=== PATIENT | female | born 1975 | race Caucasian/White ===

== ENCOUNTER 2024-11-26 11:37 | Emergency (ER) | payer MEDICAID ==
[~2024-11-26] VITALS: Ht 154.9 cm
--- OUTSIDE RECORDS SUMMARY | 2024-11-26 12:58 | XMS ---
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 PHONE: Unknown Tenisha has no Care Guidelines for this patient. E.Charly VISIT COUNT ([address] [facility]. 2 [facility]. 1 [facility] 1 [facility] TOTAL 14 NOTE: Visits indicate total known visits. ED/UCC VISIT TRACKING (12 MO.) 11/26/2024 11:37 [facility] [address] [facility] TYPE: Emergency COMPLAINT: - DRESSING CHANGE 11/24/2024 11:33 [facility] TYPE: Emergency DIAGNOSES: - Anemia, unspecified - Bronchopneumonia, unspecified organism - Sciatica, unspecified side - leg pain 09/07[facility]24 [facility] DIAGNOSES: - Diarrhea, unspecified - Hypokalemia - Nausea with vomiting, unspecified - Ulcerative colitis, unspecified with fistula - Diarrhea - Vomiting - Vomiting/Diarrhea 08/31/2024 14:39 [facility] TYPE: Emergency DIAGNOSES: - Hypokalemia - Lower abdominal pain, unspecified - Nausea with vomiting, unspecified - Noninfective gastroenteritis and colitis, unspecified - Urinary tract infection, site not specified - Nausea - Nausea, Vomiting - Vomiting 06/30/2024 12:42 Tommy KANG [place] TYPE: Emergency 06/25/2024 16:10 Tommy KANG [place] TYPE: Emergency COMPLAINT: - K51.90 DIAGNOSES: - Ulcerative colitis, unspecified, without complications - T- UTI 06/09/2024 09:56 Tommy KANG [place] TYPE: Emergency COMPLAINT: - N39.0 DIAGNOSES: - Ulcerative colitis, unspecified, without complications - Urinary tract infection, site not specified - T-OTHER 04/01/2024 16:17 Tommy KANG [place] TYPE: Emergency COMPLAINT: - K61.1 DIAGNOSES: - Abscess of the breast and nipple - Immunodeficiency, unspecified - Rectal abscess - Ulcerative colitis, unspecified, without complications - perianal abscess 02/26/2024 15:40 Tommy KANG [place] TYPE: Emergency COMPLAINT: - D64.9 DIAGNOSES: - Anemia, unspecified - Iron deficiency anemia, unspecified - Ulcerative colitis, unspecified, without complications - T/ UC Flare - ulcerative colitis flare since July. Blood in stool. +n/v for the last week 01/01/2024 23:59 Tommy KANG [place] TYPE: Emergency COMPLAINT: - R10.9 DIAGNOSES: - Ulcerative colitis, unspecified, without complications - Unspecified abdominal pain - M16 12/28/2023 11:48 Tommy KANG [place] TYPE: Emergency COMPLAINT: - K51.90 DIAGNOSES: - Ulcerative colitis, unspecified, without complications 12/25/2023 07:10 Tommy KANG [place] TYPE: Emergency COMPLAINT: - K51.90 DIAGNOSES: - Ulcerative colitis, unspecified, without complications - M8 12/11/2023 14:43 Tommy KANG [place] TYPE: Emergency COMPLAINT: - R19.7 DIAGNOSES: - Anemia, unspecified - Diarrhea, unspecified - Melena - Other fatigue 11/29/2023 19:09 Tommy KANG [place] TYPE: Emergency COMPLAINT: - K92.1 DIAGNOSES: - Dizziness and giddiness - Melena INPATIENT VISIT TRACKING (12 MO.) 09/22/2024 19:37 [facility] TYPE: Internal Medicine DIAGNOSES: 43768. Crohn's disease of large intestine with fistula 44368. Crohn's disease of large intestine with unspecified complications . Pneumonia due to other specified infectious organisms . Ulcerative colitis, unspecified with unspecified complications - Crohn's disease of large intestine with fistula - Crohn's disease of large intestine with unspecified complications - Pneumonia due to other specified infectious organisms - Ulcerative colitis, unspecified with unspecified complications 09/01/2024 00:02 [facility] TYPE: Medical Surgical DIAGNOSES: - Crohn's disease of large intestine with fistula - Gastro-esophageal reflux disease without esophagitis - Hematuria, unspecified - Hypokalemia - Lower abdominal pain, unspecified - Noninfective gastroenteritis and colitis, unspecified - Unspecified abdominal pain - Urinary tract infection, site not specified 07/20/2024 11:26 [facility] TYPE: Internal Medicine DIAGNOSES: 03344. Noninfective gastroenteritis and colitis, unspecified 12163. IBD vs UC flare 17396. Noninfective gastroenteritis and colitis, unspecified 06/30/2024 12:42 Tommy KANG [place] TYPE: Inpatient COMPLAINT: - N82.3 DIAGNOSES: - Fistula of vagina to large intestine - Ulcerative colitis, unspecified, without complications [email or web address]
[2024-11-26] MEDS ORDERED: CYCLOBENZAPRINE HCL 10 MG TAB PO ONE (13:15)
[2024-11-26] MEDS ORDERED: OXYCODONE HCL 5 MG TAB PO ONE (13:15)
[2024-11-26] MEDS ORDERED: ACETAMINOPHEN 500 MG TAB PO ONE (13:15)
[2024-11-26] MEDS ORDERED: GABAPENTIN 100 MG CAP PO ONE ×2 (14:30)
[2024-11-26] MEDS ORDERED: NEURONTIN300 MG PO (15:01)
[2024-11-26 15:20] VITALS: BP 129/67
== END 2024-11-26 15:20 | disposition home or self-care (01) ==
LOC: ED 11:37
DX: M54.41 Lumbago with sciatica, right side (principal); Z88.1 Allergy status to other antibiotic agents
CPT/HCPCS: 99283; A9270

== ENCOUNTER 2024-12-19 12:53 | Emergency (ER) | payer MEDICAID ==
[~2024-12-19] VITALS: Ht 154.9 cm; Wt 86.6 kg
[~2024-12-19 12:53] MED LIST: NEURONTIN300 MG PO
--- OUTSIDE RECORDS SUMMARY | 2024-12-19 12:55 | XMS ---
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 - 2 Visits in 30 Days - [facility] - 3 Facilities in 90 Days C[facility], Clinic[facility]Center: [facility] PHONE: Unknown Tenisha has no Care Guidelines for this patient. E.Charly VISIT COUNT (12 MO.) 8 Tyler H. 2 [facility] 2 [facility] TOTAL 14 NOTE: Visits indicate total known visits. ED/UCC VISIT TRACKING (12 MO.) 12/19/2024 12:54 SMAIR Ramirez [place] TYPE: Emergency COMPLAINT: - WEAKNESS 12/05/2024 10:56 [facility] Shanthi HU (Frank Marie) TYPE: Emergency DIAGNOSES: - Crohn's disease of large intestine with unspecified complications - Lumbago with sciatica, right side - Personal history of systemic steroid therapy - Pneumonia, unspecified organism - Abnormal Lab - back pain - Leg Pain 11/26/2024 11:37 SAMIR Ramirez [place] TYPE: Emergency COMPLAINT: - DRESSING CHANGE DIAGNOSES: - Allergy status to other antibiotic agents - Low back pain, unspecified - Lumbago with sciatica, right side 11/24/2024 11:33 [facility] Frank HU (Frank Marie) TYPE: Emergency DIAGNOSES: - Anemia, unspecified - Bronchopneumonia, unspecified organism - Sciatica, unspecified side - leg pain 09/07/2024 15:25 [facility] [place] TYPE: Emergency DIAGNOSES: - Diarrhea, unspecified - Hypokalemia - Nausea with vomiting, unspecified - Ulcerative colitis, unspecified with fistula - Diarrhea - Vomiting - Vomiting/Diarrhea 08/31/2024 14:39 [facility] [place] TYPE: Emergency DIAGNOSES: - Hypokalemia - Lower abdominal pain, unspecified - Nausea with vomiting, unspecified - Noninfective gastroenteritis and colitis, unspecified - Urinary tract infection, site not specified - Nausea - Nausea, Vomiting - Vomiting 06/30/2024 12:42 Tylerjewel KANG [place] TYPE: Emergency 06/25/2024 16:10 Tylerjewel KANG [place] TYPE: Emergency COMPLAINT: - K51.90 DIAGNOSES: - Ulcerative colitis, unspecified, without complications - T- UTI 06/09/2024 09:56 Tylerjewel [facility]el [place] TYPE: Emergency COMPLAINT: - N39.0 DIAGNOSES: - Ulcerative colitis, unspecified, without complications - Urinary tract infection, site not specified - T-OTHER 04/01/2024 16:17 Tyler Anthony KANG [place] TYPE: Emergency COMPLAINT: - K61.1 [...] Ulcerative colitis, unspecified, without complications - M8 INPATIENT VISIT TRACKING (12 MO.) 09/22/2024 19:37 [facility] TYPE: Internal Medicine DIAGNOSES: 47667. Crohn's disease of large intestine with fistula 25540. Crohn's disease of large intestine with unspecified complications 63908. Pneumonia due to other specified infectious organisms 40512. Ulcerative colitis, unspecified with unspecified complications - Crohn's disease of large intestine with fistula - Crohn's disease of large intestine with unspecified complications - Pneumonia due to other specified infectious organisms - Ulcerative colitis, unspecified with unspecified complications 09/01/2024 00:02 [facility] TYPE: Medical Surgical DIAGNOSES: - Crohn's disease of large intestine with fistula - Gastro-esophageal reflux disease without esophagitis - Hematuria, unspecified - Hypokalemia - Lower abdominal pain, unspecified - Noninfective gastroenteritis and colitis, unspecified - Unspecified abdominal pain - Urinary tract infection, site not specified 07/20/2024 11:26 [facility] TYPE: Internal Medicine DIAGNOSES: 95142. Noninfective gastroenteritis and colitis, unspecified 76441. IBD vs UC flare 69194. Noninfective gastroenteritis and colitis, unspecified 06/30/2024 12:42 Tommy BURLESON TYPE: Inpatient COMPLAINT: - N82.3 DIAGNOSES: - Fistula of vagina to large intestine - Ulcerative colitis, unspecified, without complications [id number]
[2024-12-19] MEDS ORDERED: SKYRIZI ON360 MG/2.4 SQ (13:14)
[2024-12-19] MEDS ORDERED: ZANAFLEX4 MG PO (13:14)
[2024-12-19] MEDS ORDERED: PREDNISONE20 MG PO (13:14)
[2024-12-19] MEDS ORDERED: ESOMEPRAZOLE MA20 MG PO (13:14)
[2024-12-19] MEDS ORDERED: OXYCODONE-ACET1 EAC1 PO (13:14)
[2024-12-19 13:47] LABS: BASOPHILS 0.2 % (0-2); EOSINOPHILS 0.3 % (0-6); HEMATOCRIT 22.3 % (35.0-50.0); HEMOGLOBIN 6.6 g/dL (12.0-18.0); LYMPHOCYTES 6.9 % (24-44); MCH 20.1 (27-36); MCHC 29.5 g/dl (30-36); MCV 68.4 fl (81-99); MONOCYTES 2.6 % (0-12); PLATELET COUNT 366 K/uL (140-440); RBC 3.26 M/ul (4.3-5.7)
[2024-12-19 13:58] LABS: ALBUMIN 2.8 g/dL (3.4-5.0); ALBUMIN/GLOBULIN RATIO 0.62 (1.1-2.4); ANION GAP 13.3 (7-21); BILIRUBIN, TOTAL 0.1 ng/dL (0.2-1.0); BUN/CREATININE RATIO 32.18 (6.0-28.6); CALCIUM 8.9 mg/dL (8.5-10.1); CREATININE, SERUM 0.87 mg/dL (0.55-1.02); POTASSIUM 4.3 mmol/L (3.5-5.1); PROTEIN, TOTAL 7.3 g/dL (6.4-8.2)
[2024-12-19 14:04] VITALS: BP 127/78
[2024-12-19 14:37] LABS: ABO B; ANTIBODY SCREEN GW72819; IS CROSSMATCH COMPATIBLE; RH NEGATIVE
[2024-12-19 14:57] LABS: ABO B; RH NEGATIVE
== END 2024-12-19 14:04 | disposition home or self-care (01) ==
LOC: ED 12:53
PROVIDERS: Emergency Medicine
DX: D64.9 Anemia, unspecified (principal); K51.911 Ulcerative colitis, unspecified with rectal bleeding; Z88.1 Allergy status to other antibiotic agents; Z79.52 Long term (current) use of systemic steroids; Z79.899 Other long term (current) drug therapy
CPT/HCPCS: 36415; 80053; 85025; 86850; 86900; 86901; 86922; 99284; P9016

== ENCOUNTER 2024-12-25 14:21 | Emergency (ER) | payer MEDICAID ==
[~2024-12-25] VITALS: Ht 154.9 cm; Wt 83.9 kg
[~2024-12-25 14:21] MED LIST changes: +ESOMEPRAZOLE MA20 MG PO; +OXYCODONE-ACET1 EAC1 PO; +PREDNISONE20 MG PO; +SKYRIZI ON360 MG/2.4 SQ; +ZANAFLEX4 MG PO
--- OUTSIDE RECORDS SUMMARY | 2024-12-25 14:28 | XMS ---
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 PHONE: Unknown Tenisha has no Care Guidelines for this patient. E.Francisca. VISIT COUNT (12 MO.) 7 Tommy Cruz 4 [facility] [address] [facility] 2 [facility]. TOTAL 15 NOTE: Visits indicate total known visits. ED/UCC VISIT TRACKING (12 MO.) 12/25/2024 14:21 SAMIR Ramirez [place] TYPE: Emergency COMPLAINT: - CATHETER ISSUE 12/24/2024 14:55 SAMIR Ramirez [place] TYPE: Emergency COMPLAINT: - CENTERAL LINE ISSUE 12/19/2024 12:54 SAMIR Ramirez [place] TYPE: Emergency COMPLAINT: - WEAKNESS DIAGNOSES: - Allergy status to other antibiotic agents - Anemia, unspecified - Dizziness and giddiness - longterm (current) use of systemic steroids - Other fpc (current) drug therapy - Ulcerative colitis, unspecified with rectal bleeding 12/05/2024 10:56 [facility] Frank HU (Frank Marie) TYPE: Emergency DIAGNOSES: - Crohn's disease of large intestine with unspecified complications - Lumbago with sciatica, right side - Personal history of systemic steroid therapy - Pneumonia, unspecified organism - Abnormal Lab - back pain - Leg Pain 11/26/2024 11:37 SAMIR Mcnulty TYPE: Emergency COMPLAINT: - DRESSING CHANGE DIAGNOSES: - Allergy status to other antibiotic agents - Low back pain, unspecified - Lumbago with sciatica, right side 11/24/2024 11:[facility] DIAGNOSES: - Anemia, unspecified - Bronchopneumonia, unspecified organism - Sciatica, unspecified side - leg pain 09/07/2024 15:25 [facility] Anthony YANEZ [place] TYPE: Emergency DIAGNOSES: - Diarrhea, unspecified - Hypokalemia - Nausea with vomiting, unspecified - Ulcerative colitis, unspecified with fistula - Diarrhea - Vomiting - Vomiting/Diarrhea 08/31/2024 14:39 [facility] [place] [facility] DIAGNOSES: - Hypokalemia - [...] site not specified - T-OTHER 04/01/2024 16:17 [facility] Anthony KANG [place] TYPE: Emergency COMPLAINT: - [...] abdominal pain - M16 12/28/2023 11:48 Tommy BURLESON TYPE: Emergency COMPLAINT: - K51.90 DIAGNOSES: - Ulcerative colitis, unspecified, without complications 12/25/2023 07:10 Tommy BURLESON TYPE: Emergency COMPLAINT: - K51.90 DIAGNOSES: - Ulcerative colitis, unspecified, without complications - M8 INPATIENT VISIT TRACKING (12 MO.) 09/22/2024 19:37 [facility] TYPE: Internal Medicine DIAGNOSES: 55905. Crohn's disease of large intestine with fistula 97713. Crohn's disease of large intestine with unspecified complications 47971. Pneumonia due to other specified infectious organisms 17287. Ulcerative colitis, unspecified with unspecified complications - Crohn's disease of large intestine with fistula - Crohn's disease of large intestine with unspecified complications - Pneumonia due to other specified infectious organisms - Ulcerative colitis, unspecified with unspecified complications 09/01/2024 00:02 [facility] TYPE: Medical Surgical DIAGNOSES: - Crohn's disease of large intestine with fistula - Gastro-esophageal reflux disease without esophagitis - Hematuria, unspecified - Hypokalemia - Lower abdominal pain, unspecified - Noninfective gastroenteritis and colitis, unspecified - Unspecified abdominal pain - Urinary tract infection, site not specified 07/20/2024 11:26 [facility] TYPE: Internal Medicine DIAGNOSES: 07505. Noninfective gastroenteritis and colitis, unspecified 36786. IBD vs UC flare 14893. Noninfective gastroenteritis and colitis, unspecified 06/30/2024 12:42 Tommy KANG [place] TYPE: Inpatient COMPLAINT: - N82.3 DIAGNOSES: - Fistula of vagina to large intestine - Ulcerative colitis, unspecified, without complications [id number]
[2024-12-25 16:09] VITALS: BP 119/76
== END 2024-12-25 16:09 | disposition home or self-care (01) ==
LOC: ED 14:21
DX: T82.9XXA Unspecified complication of cardiac and vascular prosthetic device, implant and graft, initial encounter (principal); K51.90 Ulcerative colitis, unspecified, without complications; Z88.1 Allergy status to other antibiotic agents; Z79.52 Long term (current) use of systemic steroids; Z79.891 Long term (current) use of opiate analgesic; Z79.899 Other long term (current) drug therapy
CPT/HCPCS: 96374; 99283-25

== ENCOUNTER 2025-05-08 09:27 | Emergency (ER) | payer MEDICAID ==
[~2025-05-08] VITALS: Ht 154.9 cm; Wt 95.4 kg
--- OUTSIDE RECORDS SUMMARY | 2025-05-08 09:33 | XMS ---
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 PHONE: Unknown Tenisha has no Care Guidelines for this patient. E.Charly VISIT COUNT (12 MO.) 6 [facility] Shanthi Bashir (Frank Marie) 5 [facility] 4 [place] [facility] 2 [facility] TOTAL 17 NOTE: Visits indicate total known visits. ED/UCC VISIT TRACKING (12 MO.) 05/08/2025 09:29 [facility] [address] Hammad Morton [place] TYPE: Emergency COMPLAINT: - ABNORMAL LAB 05/04/2025 12:01 [facility] Shanthi HU (Frank Marie) TYPE: Emergency DIAGNOSES: - Encounter for adjustment and management of vascular access device - Vascular Access Problem - wound check 04/23/2025 14:19 Tommy BURLESON TYPE: Emergency COMPLAINT: - D64.9 DIAGNOSES: - Anemia, unspecified - T/REFERRED BY PCP 01/20/2025 12:03 [facility] Frank HU (Frank Marie) TYPE: Emergency DIAGNOSES: - Hypoxemia - Other pulmonary embolism without acute cor pulmonale - Shortness of Breath - SOB 01/05/2025 02:38 [facility] Frank HU (Frank Marie) TYPE: Emergency DIAGNOSES: - Pain in right hip - neck / back / rt leg pain - Pain 01/04/2025 11:16 [facility] Frank HU (Frank Marie) TYPE: Emergency DIAGNOSES: - Lumbago with sciatica, right side - Other chronic pain - Hip Pain 12/25/2024 14:21 SAMIR Ramirez [place] TYPE: Emergency COMPLAINT: - CATHETER ISSUE DIAGNOSES: - Allergy status to other antibiotic agents - 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 - USP (current) use of systemic steroids - Other longterm (current) drug therapy - Ulcerative colitis, unspecified, without complications - Unspecified complication of cardiac and vascular prosthetic device, implant and graft, initial encounter 12/24/2024 14:55 SAMIR Ramirez [place] TYPE: Emergency COMPLAINT: - CENTERAL LINE ISSUE 12/19/2024 12:54 SAMIR Ramirez [place] TYPE: Emergency COMPLAINT: - WEAKNESS DIAGNOSES: - Allergy status to other antibiotic agents - Anemia, unspecified - Dizziness and giddiness - USP (current) use of systemic steroids - Other longterm (current) drug therapy - Ulcerative colitis, unspecified with rectal bleeding 12/05/2024 10[facility] DIAGNOSES: - Crohn's disease of large intestine with unspecified complications - Lumbago with sciatica, right side - Personal history of systemic steroid therapy - Pneumonia, unspecified organism - Abnormal Lab - back pain - Leg Pain 11/26/2024 11:37 [facility] [address] Hammad Morton [place] TYPE: Emergency COMPLAINT: - DRESSING CHANGE DIAGNOSES: - Allergy status to other antibiotic agents - Low back pain, unspecified - Lumbago with sciatica, right side 11/24/2024 11:33 [facility] Frank HU (Frank Marie) TYPE: Emergency DIAGNOSES: - Anemia, unspecified - Bronchopneumonia, unspecified organism - Sciatica, unspecified side - leg pain 09/07/2024 [facility]25 [facility] DIAGNOSES: - Diarrhea, unspecified - Hypokalemia - Nausea with vomiting, unspecified - Ulcerative colitis, unspecified with fistula - Diarrhea - Vomiting - Vomiting/Diarrhea 08/31/2024 14:39 [facility] TYPE: Emergency DIAGNOSES: - Hypokalemia - [...] tract infection, site not specified - T-OTHER INPATIENT VISIT TRACKING (12 MO.) 01/29/2025 16:13 [facility] Frank HU (Frank Marie) TYPE: Medical Surgical DIAGNOSES: - Candidal sepsis - Crohn's disease of large intestine with fistula - Hypoxemia - Other pulmonary embolism without acute cor pulmonale - Other specified interstitial pulmonary diseases 01/20/2025 12:03 [facility] Frank HU (Frank Marie) TYPE: Medical Surgical DIAGNOSES: - Acute respiratory failure with hypoxia - Anemia, unspecified - Bloodstream infection due to central venous catheter, initial encounter - Candidal sepsis - Crohn's disease of large intestine with fistula - Encounter for palliative care - Hypoxemia - Other malaise - Other pulmonary embolism without acute cor pulmonale - Other specified counseling - Sepsis, unspecified organism 09/22/2024 19:37 [facility] TYPE: Internal Medicine DIAGNOSES: 99542. Crohn's disease of large intestine with fistula 71695. Crohn's disease of large intestine with unspecified complications 22189. Pneumonia due to other specified infectious organisms 50838. Ulcerative colitis, unspecified with unspecified complications - Crohn's disease of large intestine with fistula - Crohn's disease of large intestine with unspecified complications - Pneumonia due to other specified infectious organisms - Ulcerative colitis, unspecified with unspecified complications 09/01/2024 00:02 [facility] TYPE: Medical Surgical DIAGNOSES: - Crohn's disease of large intestine with fistula - Gastro-esophageal reflux disease without esophagitis - Hematuria, unspecified - Hypokalemia - Lower abdominal pain, unspecified - Noninfective gastroenteritis and colitis, unspecified - Unspecified abdominal pain - Urinary tract infection, site not specified 07/20/2024 11:26 [facility] TYPE: Internal Medicine DIAGNOSES: 36792. Noninfective gastroenteritis and colitis, unspecified 22131. IBD vs UC flare 89490. Noninfective gastroenteritis and colitis, unspecified 06/30/2024 12:42 Tommy KANG [place] TYPE: Inpatient COMPLAINT: - N82.3 DIAGNOSES: - Fistula of vagina to large intestine - Ulcerative colitis, unspecified, without complications [email or web address]
[2025-05-08] MEDS ORDERED: [UNRECOGNIZED DRUG - OTHER] PO ONE (10:30)
[2025-05-08] MEDS ORDERED: POTASSIUM PHOSPHATE 20 MMOL in DEXTROSE 5% 500 ML IV ONE (10:30)
[2025-05-08] MEDS ORDERED: CALCIUM CARBONATE PO ONE (10:30)
[2025-05-08 17:50] LABS: ALBUMIN 3.1 g/dL (3.4-5.0); ALBUMIN/GLOBULIN RATIO 0.76 (1.1-2.4); ANION GAP 12.1 (7-21); BILIRUBIN, TOTAL 0.2 mg/dL (0.2-1.0); BUN/CREATININE RATIO 17.97 (6.0-28.6); CALCIUM 8.5 mg/dL (8.5-10.1); CREATININE, SERUM 0.89 mg/dL (0.55-1.02); POTASSIUM 4.1 mmol/L (3.5-5.1); PROTEIN, TOTAL 7.2 g/dL (6.4-8.2)
[2025-05-08 19:11] VITALS: BP 145/100
== END 2025-05-08 19:11 | disposition home or self-care (01) ==
LOC: ED 09:27
PROVIDERS: Emergency Medicine
DX: E83.39 Other disorders of phosphorus metabolism (principal); Z88.1 Allergy status to other antibiotic agents; Z79.899 Other long term (current) drug therapy
CPT/HCPCS: 36415; 80053; 84100; 96365; 96366; 99283-25; J7060

== ENCOUNTER 2025-07-25 16:17 | Emergency (ER) | payer MEDICAID ==
[~2025-07-25] VITALS: Ht 154.9 cm; Wt 100.1 kg
--- OUTSIDE RECORDS SUMMARY | 2025-07-25 16:24 | XMS ---
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 PHONE: Unknown Tenisha has no Care Guidelines for this patient. Dena VISIT COUNT (12 MO.) 6 [facility]. [facility] 2 [place] [facility] 2 [facility]. TOTAL 16 NOTE: Visits indicate total known visits. ED/UCC VISIT TRACKING (12 MO.) 07/25/2025 16:17 [facility] [place] TYPE: Emergency COMPLAINT: - SHORTNESS OF BREATH 07/07/2025 15:27 [facility] KANG [place] TYPE: Emergency COMPLAINT: - M54.9 DIAGNOSES: - Anemia, unspecified - Crohn's disease, unspecified, without complications - Dorsalgia, unspecified - t/back pain - t/other 05/08/2025 09:29 [facility] [place] TYPE: Emergency COMPLAINT: - ABNORMAL LAB DIAGNOSES: - Abnormal finding of blood chemistry, unspecified - Allergy status to other antibiotic agents - Other disorders of phosphorus metabolism - Other care home (current) drug therapy 05/04/2025 12:01 [facility] [place] ([place]) TYPE: Emergency DIAGNOSES: - Encounter for adjustment and management of vascular access device - Vascular Access Problem - wound check 04/23/2025 14:19 Tommy BURLESON TYPE: Emergency COMPLAINT: - D64.9 DIAGNOSES: - Anemia, unspecified - T/REFERRED BY PCP 01/20/2025 12:03 [facility] [place] ([facility]) TYPE: Emergency DIAGNOSES: - Hypoxemia - Other pulmonary embolism without acute cor pulmonale - Shortness of Breath - SOB 01/05/2025 02:38 [facility] [place]) TYPE: Emergency DIAGNOSES: - Pain in right hip - neck / back / rt leg pain - Pain [facility] [place] [facility]: Emergency DIAGNOSES: - Lumbago with sciatica, right side - Other chronic pain - Hip Pain 12/25/2024 14:21 [facility] Ramirez [place] TYPE: Emergency COMPLAINT: - CATHETER ISSUE DIAGNOSES: - Allergy status to other antibiotic agents - alf (current) use of opiate analgesic - alf (current) use of systemic steroids - 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 - Ulcerative colitis, unspecified, without complications - Unspecified complication of cardiac and vascular prosthetic device, implant and graft, initial encounter 12/24/2024 14:55 [facility] [place] TYPE: Emergency COMPLAINT: - CENTERAL LINE ISSUE 12/19/2024 12:54 [facility] Ramirez [place] TYPE: Emergency COMPLAINT: - WEAKNESS DIAGNOSES: - Allergy status to other antibiotic agents - Anemia, unspecified - Dizziness and giddiness - alf (current) use of systemic steroids - Other care home (current) drug therapy - Ulcerative colitis, unspecified with rectal bleeding 12/05/2024 10[facility] DIAGNOSES: - Crohn's disease of large intestine with unspecified complications - Lumbago with sciatica, right side - Personal history of systemic steroid therapy - Pneumonia, unspecified organism - Abnormal Lab - back pain - Leg Pain 11/26/2024 11:37 [facility] [place] TYPE: Emergency COMPLAINT: - DRESSING CHANGE DIAGNOSES: - Allergy status to other antibiotic agents - Low back pain, unspecified - Lumbago with sciatica, right side 11/24/2024 11:33 [facility] [place] ([place]) TYPE: Emergency DIAGNOSES: - Anemia, unspecified - Bronchopneumonia, unspecified organism - Sciatica, unspecified side - leg pain 09/07/2024 15:[facility] [place] [facility] DIAGNOSES: - Diarrhea, unspecified - Hypokalemia - Nausea with vomiting, unspecified - Ulcerative colitis, unspecified with fistula - Diarrhea - Vomiting - Vomiting/Diarrhea 08/31/2024 14:39 [facility] [place] [facility] DIAGNOSES: - Hypokalemia - Lower abdominal pain, unspecified - Nausea with vomiting, unspecified - Noninfective gastroenteritis and colitis, unspecified - Urinary tract infection, site not specified - Nausea - Nausea, Vomiting - Vomiting INPATIENT VISIT TRACKING (12 MO.) 01/29/2025 16:13 [facility] TYPE: Medical Surgical DIAGNOSES: - Candidal sepsis - Crohn's disease of large intestine with fistula - Hypoxemia - Other pulmonary embolism without acute cor pulmonale - Other specified interstitial pulmonary diseases 01/20/2025 12:03 [facility] ([place] Marie) TYPE: Medical Surgical DIAGNOSES: - [...] counseling - Sepsis, unspecified organism 09/22/2024 19:37 [facility] TYPE: Internal Medicine DIAGNOSES: 39595. Crohn's disease of large intestine with fistula 55301. Crohn's disease of large intestine with unspecified complications . Pneumonia due to other specified infectious organisms . Ulcerative colitis, unspecified with unspecified complications - Crohn's disease of large intestine with fistula - Crohn's disease of large intestine with unspecified complications - Pneumonia due to other specified infectious organisms - Ulcerative colitis, unspecified with unspecified complications 09/01/2024 00:02 [facility] TYPE: Medical Surgical DIAGNOSES: - Crohn's disease of large intestine with fistula - Gastro-esophageal reflux disease without esophagitis - Hematuria, unspecified - Hypokalemia - Lower abdominal pain, unspecified - Noninfective gastroenteritis and colitis, unspecified - Unspecified abdominal pain - Urinary tract infection, site not specified [email or web address]
[2025-07-25] MEDS ORDERED: ELIQUIS5 MG PO (16:52)
[2025-07-25] MEDS ORDERED: PANTOPRAZOLE SO40 MG PO (16:52)
[2025-07-25] MEDS ORDERED: GABAPENTIN 300 MG CAP PO ONE (17:00)
[2025-07-25 17:17] LABS: BASOPHILS 0.4 % (0.1-1.2); EOSINOPHILS 0.8 % (0.7-5.8); LYMPHOCYTES 12.1 % (19.3-51.7); MCH 25.4 PG (25.6-32.2); MCHC 29.0 g/dL (32.2-35.5); MCV 87.6 fL (79.4-94.8); MONOCYTES 8.1 % (4.7-12.5); NEUTROPHILS 77.2 % (34.0-71.1); RBC 3.23 M/uL (3.93-5.22)
[2025-07-25 17:34] LABS: ALT (SGPT) 19.0 U/L (14-59); AST (SGOT) 8.0 U/L (15-37); GLOMERULAR FILTRATION RATE,EST 97.0 mL/min (>60); PHOSPHORUS, INORGANIC 3.5 mg/dL (2.5-4.9); PROTEIN, TOTAL 6.6 g/dL (6.4-8.2); UREA NITROGEN 21.0 mg/dL (7-18)
[2025-07-25 17:55] VITALS: BP 118/66
== END 2025-07-25 17:55 | disposition home or self-care (01) ==
LOC: ED 16:17
PROVIDERS: Emergency Medicine
DX: Z71.1 Person with feared health complaint in whom no diagnosis is made (principal); Z79.52 Long term (current) use of systemic steroids; Z79.899 Other long term (current) drug therapy; Z88.1 Allergy status to other antibiotic agents
CPT/HCPCS: 36415; 71045; 80053; 83735; 84100; 85025; 85060; 99284-25; A9270

== ENCOUNTER 2025-08-23 14:30 | Emergency (ER) | payer MEDICAID ==
[~2025-08-23] VITALS: Ht 154.9 cm; Wt 100.0 kg
[~2025-08-23 14:30] MED LIST changes: +ELIQUIS5 MG PO; +PANTOPRAZOLE SO40 MG PO
--- OUTSIDE RECORDS SUMMARY | 2025-08-23 14:37 | XMS ---
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 - 2 Visits in 30 Days [facility], Clinic[facility]Center: [facility] PHONE: Unknown Tenisha has no Care Guidelines for this patient. Dena VISIT COUNT (12 MO.) [address] [place] [address] 6 [facility] ([place]) 2 [facility]. TOTAL 17 NOTE: Visits indicate total known visits. ED/UCC VISIT TRACKING (12 MO.) 08/23/2025 14:30 [facility] [place] TYPE: Emergency COMPLAINT: - SKIN PROBLEM 07/25/2025 16:17 [facility] Ramirez [place] TYPE: Emergency COMPLAINT: - SHORTNESS OF BREATH DIAGNOSES: - Allergy status to other antibiotic agents - intermediate card tender (current) use of systemic steroids - Other long term care pharmacist (current) drug therapy - Person with feared health complaint in whom no diagnosis is made - Unspecified abdominal pain 07/07/2025 15:27 Tommy KANG [place] TYPE: Emergency COMPLAINT: - M54.9 DIAGNOSES: - Anemia, unspecified - Crohn's disease, unspecified, without complications - Dorsalgia, unspecified - t/back pain - t/other 05/08/2025 09:29 [facility] [place] [facility] COMPLAINT: - ABNORMAL LAB DIAGNOSES: - Abnormal finding of blood chemistry, unspecified - Allergy status to other antibiotic agents - Other disorders of phosphorus metabolism - Other long term care pharmacist (current) drug therapy 05/04/2025 12:01 [facility]: Emergency DIAGNOSES: - Encounter for adjustment and management of vascular access device - Vascular Access Problem - wound check 04/23/2025 14:19 Tommy KANG [place] TYPE: Emergency COMPLAINT: - D64.9 DIAGNOSES: - Anemia, unspecified - T/REFERRED BY PCP 01/20/2025 12:03 [facility] [place] [facility] (Frank Marie) TYPE: Emergency DIAGNOSES: - Hypoxemia - Other pulmonary embolism without acute cor pulmonale - Shortness of Breath - SOB 01/05/2025 02:38 [facility] ([place] [facility]) TYPE: Emergency DIAGNOSES: - Pain in right hip - neck / back / rt leg pain - Pain 01/04/2025 11:16 [facility] Marie [facility] (Frank Marie) TYPE: Emergency DIAGNOSES: - Lumbago with sciatica, right side - Other chronic pain - Hip Pain 12/25/2024 14:21 [facility] [place] TYPE: Emergency COMPLAINT: - CATHETER ISSUE DIAGNOSES: - Allergy status to other antibiotic agents - half-way (current) use of opiate analgesic - intermediate card tender (current) use of systemic steroids - Other shelter (current) drug therapy - Ulcerative colitis, unspecified, without complications - Unspecified complication of cardiac and vascular prosthetic device, implant and graft, initial encounter 12/24/2024 14:55 [facility] [place] TYPE: Emergency COMPLAINT: - CENTERAL LINE ISSUE 12/19/2024 12:54 [facility] [place] TYPE: Emergency COMPLAINT: - WEAKNESS DIAGNOSES: - Allergy status to other antibiotic agents - Anemia, unspecified - Dizziness and giddiness - intermediate card tender (current) use of systemic steroids - Other shelter (current) drug therapy - Ulcerative colitis, unspecified with rectal bleeding 12/05/2024 10:56 [facility]: Emergency DIAGNOSES: - [...] Lumbago with sciatica, right side 11/24/2024 11[facility] DIAGNOSES: - Anemia, unspecified - Bronchopneumonia, unspecified organism - Sciatica, unspecified side - leg pain 09/07/2024 15:25 [facility] [place] TYPE: Emergency DIAGNOSES: - Diarrhea, unspecified - Hypokalemia - Nausea with vomiting, unspecified - Ulcerative colitis, unspecified with fistula - Diarrhea - Vomiting - Vomiting/Diarrhea 08/31/2024 14:39 [facility] [place] TYPE: Emergency DIAGNOSES: - Hypokalemia - Lower abdominal pain, unspecified - Nausea with vomiting, unspecified - Noninfective gastroenteritis and colitis, unspecified - Urinary tract infection, site not specified - Nausea - Nausea, Vomiting - Vomiting INPATIENT VISIT TRACKING (12 MO.) 01/29/2025 16:13 [facility] [place] ([place]) TYPE: Medical Surgical DIAGNOSES: - Candidal sepsis - Crohn's disease of large intestine with fistula - Hypoxemia - Other pulmonary embolism without acute cor pulmonale - Other specified interstitial pulmonary diseases 01/20/2025 12:03 [facility] [place] ([place]) TYPE: Medical Surgical DIAGNOSES: - Acute respiratory failure with hypoxia - Anemia, unspecified - Bloodstream infection due to central venous catheter, initial encounter - Candidal sepsis - Crohn's disease of large intestine with fistula - Encounter for palliative care - Hypoxemia - Other malaise - Other pulmonary embolism without acute cor pulmonale - Other specified counseling - Sepsis, unspecified organism 09/22/2024 19:37 [facility] TYPE: Internal Medicine DIAGNOSES: 82957. Crohn's disease of large intestine with fistula 14170. Crohn's disease of large intestine with unspecified complications . Pneumonia due to other specified infectious organisms . Ulcerative colitis, unspecified with unspecified complications - Crohn's disease of large intestine with fistula - Crohn's disease of large intestine with unspecified complications - Pneumonia due to other specified infectious organisms - Ulcerative colitis, unspecified with unspecified complications 09/01/2024 00:02 [facility] TYPE: Medical Surgical DIAGNOSES: - Crohn's disease of large intestine with fistula - Gastro-esophageal reflux disease without esophagitis - Hematuria, unspecified - Hypokalemia - Lower abdominal pain, unspecified - Noninfective gastroenteritis and colitis, unspecified - Unspecified abdominal pain - Urinary tract infection, site not specified [id number]
[2025-08-23] MEDS ORDERED: PREDNISONE10 MG PO (17:27)
[2025-08-23] MEDS ORDERED: GABAPENTIN300 MG PO (17:27)
[2025-08-23] MEDS ORDERED: HYDROCODONE/ACETA 5/325 TAB PO ONE (19:15)
[2025-08-23] MEDS ORDERED: HYDROCODONE BIT/ACETAMINOPHEN 5/325 MG 1 TAB HOME.PACK PO ONE (19:45)
[2025-08-23 19:53] VITALS: BP 121/65
== END 2025-08-23 19:54 | disposition home or self-care (01) ==
LOC: ED 14:30
DX: L02.411 Cutaneous abscess of right axilla (principal); Z88.1 Allergy status to other antibiotic agents; Z79.01 Long term (current) use of anticoagulants; Z79.52 Long term (current) use of systemic steroids; Z79.899 Other long term (current) drug therapy
CPT/HCPCS: 10060; 99283-25; A9270